=== PATIENT | female | born 1955 | race Caucasian/White ===

== ENCOUNTER 2024-10-04 08:47 | Outpatient (CLI) | payer MEDICARE, MEDICAID ==
[2024-10-04 09:33] VITALS: PULSE 70; RESP 16; O2SAT 98
== END 2024-10-04 23:59 | disposition home or self-care (01) ==
LOC: RT 08:47
PROVIDERS: ATTEND Student in an Organized Health Care Education/Training Program
DX: R94.2 Abnormal results of pulmonary function studies (principal); J44.9 Chronic obstructive pulmonary disease, unspecified
CPT/HCPCS: 94010; 94760